=== PATIENT | female | born 1975 | race Caucasian/White ===

== ENCOUNTER 2016-08-18 09:30 | Emergency (ER) | payer OTHER ==
[~2016-08-18] VITALS: Wt 80.0 kg
[~2016-08-18 09:30] MED LIST: AMLO-147 PO; CEPH-443 PO; IBUP-1542 PO; INSU100C SC; LANT3I SC; METF500T4 PO; ORPH100T PO; PHEN-538 PO
--- NOTE | 2016-08-18 10:31 | ERD ---
ER Documentation Chief Complaint Date/Time DATE: 08/18/16 TIME: 10:30 Chief Complaint dysuria and hematuria for the past wk . nausea no vomiting no backpain HPI 41-year-old female with history of type 1 diabetes comes in with dysuria, on and off hematuria and vaginal discharge for the past week. Patient states that it started with vaginal itching and white discharge, and she also complains of painful urination and urgency. She has not had any fever, chills, nausea, vomiting, hematuria or flank pain. ROS All systems reviewed and are negative except as per history of present illness. Medications Home Meds Active Scripts Fluconazole* (Diflucan*) 150 Mg Tablet, 150 MG PO ONCE, #2 TAB Prov:TEET LU PA-C 08/18/16 Nitrofurantoin Monohyd Macrocr* (Macrobid*) 100 Mg Capsr, 100 MG PO BID for 7 Days, CAP Prov:TETE LU PA-C 08/18/16 Phenazopyridine Hcl* (Pyridium*) 200 Mg Tab, 200 MG PO TID Y for URINARY PAIN, # 6 TAB Prov:RYAN BROOKE PA-C 02/16/16 Cephalexin* (Keflex*) 500 Mg Capsule, 500 MG PO BID for 5 Days, CAP Prov:RYAN BROOKE PA-C 02/16/16 Orphenadrine Citrate (Norflex) 100 Mg Tablet.sa, 100 MG PO BID, #6 TAB.SA Prov:JEAN PAUL KYLE 12/14/15 Ibuprofen* (Motrin*) 600 Mg Tab, 600 MG PO Q8, #20 TAB Prov:JEAN PAUL KYLE 12/14/15 Cephalexin* (Keflex*) 500 Mg Capsule, 500 MG PO QID for 7 Days, CAP Prov:JEAN PAUL KYLE 12/14/15 Reported Medications Amlodipine Besylate* (Amlodipine Besylate*) Unknown Strength Tablet, MG PO DAILY , #30 TAB 12/14/15 Metformin* (Glucophage*) Unknown Strength Tab, MG PO WITH BREAKFAST DINNE, #60 TAB 12/14/15 Insulin Lispro (Humalog) 100 U/Ml Cartridge, 20 UNITS SC WITH BREAKFAST DINNE, EA 12/14/15 Insulin Glargine* (Lantus*) 100 Unit/Ml Soln, 15 UNIT SC BID, #1 VIAL 12/14/15 Allergies Allergies: Coded Allergies: No Known Allergy (Unverified , 12/14/15) PMhx/Soc History of Surgery: Yes (cholecystectomy) Anesthesia Reaction: No Hx Neurological Disorder: No Hx Respiratory Disorders: No Hx Cardiac Disorders: Yes (HTN) Hx Psychiatric Problems: No Hx Miscellaneous Medical Probl: Yes (DM) Hx Alcohol Use: No Hx Substance Use: No Hx Tobacco Use: No Physical Exam Vitals Vital Signs Date Time Temp Pulse Resp B/P Pulse Ox O2 Delivery O2 Flow Rate FiO2 08/18/16 09:32 97.8 85 21 139/74 98 Physical Exam General: Well-developed, well-nourished. The patient appears in no acute distress. HEENT: Head is normocephalic, atraumatic. No scleral icterus. . Neck: Supple. Nontender. Lungs: Clear to auscultation. Normal air movement. Heart: Regular rate and rhythm. S1 and S2 are normal. No murmurs, gallops, or rubs. Abdomen: Soft, nontender, nondistended. Bowel sounds are normoactive. : No CMT tenderness, no masses. There is white vaginal discharge in the cifuentes , yeastlike discharge as well. Extremities: No clubbing or cyanosis. Normal pulses. Moving extremities x 4. No weakness. Neurologic: Alert and oriented 3. No focal deficits. Skin: Normal turgor. No rash or lesions. Results 24 hrs Laboratory Tests Test 08/18/16 10:38 08/18/16 10:45 Bedside Urine Blood Negative Bedside Urine Glucose (UA) 0.50% Bedside Urine Ketones (LAB) Negative Bedside Urine Leukocyte Esterase (L Negative Bedside Urine Nitrite (LAB) Positive Bedside Urine Protein (LAB) Negative Bedside Urine pH (LAB) 6.0 Bedside Glucose 286mg/dL Procedures/MDM ED course: Urine dip in progress done. Urine was sent for gonorrhea and chlamydia. MDM: 41-year-old female comes in with vaginal discharge as well as painful urination and urgency on and off for the past week, she has evidence of a urinary tract infection with positive nitrates. Urine was sent for gonorrhea and chlamydia, will not treat for PID given that she does not have any pelvic pain. Yeast vaginitis was present on examination, will treat with Diflucan. Departure Diagnosis: Primary Impression: Yeast vaginitis Additional Impression: UTI (urinary tract infection) Condition: Good TETE LU PA-C Aug 18, 2016 10:31
[2016-08-18 10:37] LABS: URINE BLOOD (Dip) POC Negative (NEGATIVE)
[2016-08-18] MEDS ORDERED: NITR-58 PO (10:47)
[2016-08-18] MEDS ORDERED: FLUC150T17 PO (10:47)
== END 2016-08-18 11:00 | disposition home or self-care (01) ==
LOC: FTE 09:30
DX: B37.3 Candidiasis of vulva and vagina (principal); N39.0 Urinary tract infection, site not specified; E11.9 Type 2 diabetes mellitus without complications; I10 Essential (primary) hypertension; N89.8 Other specified noninflammatory disorders of vagina; Z79.4 Long term (current) use of insulin; Z79.84 Long term (current) use of oral hypoglycemic drugs
CPT/HCPCS: 81003; 82962; 87591; 99284

== ENCOUNTER 2016-12-27 14:24 | Emergency (ER) | payer OTHER ==
[~2016-12-27] VITALS: Ht 157.5 cm; Wt 87.5 kg
[~2016-12-27 14:24] MED LIST changes: +FLUC150T17 PO; +NITR-58 PO
[2016-12-27 14:39] VITALS: Ht 157.5 cm; Wt 87.5 kg
[2016-12-27] MEDS ORDERED: ONDANSETRON (ODT) 4 MG TAB ODT STA (15:05)
[2016-12-27 15:28] LABS: ADD SCAN DIFF NO
[2016-12-27 15:31] LABS: BASOPHILS % 0.2 % (0.0-2.0); EOSINOPHILS % 0.2 % (0.0-7.0); HEMOGLOBIN 11.3 g/dl (12.0-16.0); LYMPHOCYTES # 2.8 10^3/ul (0.8-2.9); LYMPHOCYTES % 21.8 % (15.0-51.0); MEAN CORPUSCULAR HEMOGLOBIN 26.6 pg (29.0-33.0); MEAN CORPUSCULAR HGB CONC 32.3 g/dl (32.0-37.0); MEAN CORPUSCULAR VOLUME 82.4 fl (82.0-101.0); MEAN PLATELET VOLUME 10.5 fl (7.4-10.4); MONOCYTE # 0.5 10^3/ul (0.3-0.9); MONOCYTES % 4.2 % (0.0-11.0); NEUTROPHIL # 9.2 10^3/ul (1.6-7.5); NEUTROPHILS % 73.2 % (39.0-77.0); PLATELET COUNT 317 10^3/UL (140-415); RED BLOOD COUNT 4.25 10^6/ul (4.20-5.40); RED CELL DISTRIBUTION WIDTH 14.3 % (11.5-14.5); WHITE BLOOD COUNT 12.6 10^3/ul (4.8-10.8)
[2016-12-27 15:49] LABS: ALBUMIN 4.2 g/dl (3.3-4.9); ALBUMIN/GLOBULIN RATIO 1.4; BILIRUBIN,INDIRECT 0.1 mg/dl (0-1.1); BILIRUBIN,TOTAL 0.1 mg/dl (0.2-1.3); CALCIUM 9.2 mg/dl (8.4-10.2); CREATININE 0.53 mg/dl (0.44-1.00); POTASSIUM 4.2 mmol/L (3.5-5.1); TOTAL PROTEIN 7.2 g/dl (6.1-8.1)
[2016-12-27 15:53] LABS: ADD UMIC YES; URINE BILIRUBIN (Dip) NEGATIVE (NEGATIVE); URINE BLOOD (Dip) NEGATIVE (NEGATIVE); URINE COLOR LT. YELLOW (YELLOW); URINE GLUCOSE (Dip) NEGATIVE (NEGATIVE); URINE KETONES (Dip) NEGATIVE (NEGATIVE); URINE LEUKOCYTE ESTERASE (Dip) 1+ (NEGATIVE); URINE NITRITE (Dip) NEGATIVE (NEGATIVE); URINE TOTAL PROTEIN (Dip) NEGATIVE (NEGATIVE); URINE UROBILINOGEN (Dip) 0.2 E.U./dL (0.1-1.0)
[2016-12-27 15:59] LABS: URINE RBCS NONE SEEN /HPF (0)
[2016-12-27] MEDS ORDERED: CEPH-443 PO (16:49)
[2016-12-27] MEDS ORDERED: ONDA8TAB14 PO (16:49)
--- NOTE | 2016-12-27 16:53 | ERD ---
ER Documentation Chief Complaint Date/Time DATE: 12/27/16 TIME: 16:49 Chief Complaint multi days with stomuch discomfort, n/v thsi am and possible hypoglycemia HPI This 41-year-old female presents with a few days of some nausea and intermittent vomiting. Patient has a history of diabetes and felt some dizziness this morning. Patient in the past has had hypoglycemic episodes and is aware of usual symptoms of dizziness felt a little bit different today. She denies any fevers, chest pain or shortness of breath or bowel bladder incontinence. ROS All systems reviewed and are negative except as per history of present illness. Medications Home Meds Active Scripts Ondansetron (Ondansetron Odt) 8 Mg Tab.rapdis, 8 MG PO Q6H Y for NAUSEA AND/OR VOMITING, #8 TAB Prov:TIA HERNANDES MD 12/27/16 Cephalexin* (Keflex*) 500 Mg Capsule, 500 MG PO QID for 5 Days, CAP Prov:TIA HERNANDES MD 12/27/16 Fluconazole* (Diflucan*) 150 Mg Tablet, 150 MG PO ONCE, #2 TAB Prov:TETE LU PA-C 08/18/16 Nitrofurantoin Monohyd Macrocr* (Macrobid*) 100 Mg Capsr, 100 MG PO BID for 7 Days, CAP Prov:TETE LU PA-C 08/18/16 Phenazopyridine Hcl* (Pyridium*) 200 Mg Tab, 200 MG PO TID Y for URINARY PAIN, # 6 TAB Prov:RYAN BROOKE PA-C 02/16/16 Cephalexin* (Keflex*) 500 Mg Capsule, 500 MG PO BID for 5 Days, CAP Prov:RYAN BROOKE PA-C 02/16/16 Orphenadrine Citrate (Norflex) 100 Mg Tablet.sa, 100 MG PO BID, #6 TAB.SA Prov:JEAN PAUL KYLE 12/14/15 Ibuprofen* (Motrin*) 600 Mg Tab, 600 MG PO Q8, #20 TAB Prov:JEAN PAUL KYLE 12/14/15 Cephalexin* (Keflex*) 500 Mg Capsule, 500 MG PO QID for 7 Days, CAP Prov:JEAN PAUL KYLE 12/14/15 Reported Medications Amlodipine Besylate* (Amlodipine Besylate*) Unknown Strength Tablet, MG PO DAILY , #30 TAB 12/14/15 Metformin* (Glucophage*) Unknown Strength Tab, MG PO WITH BREAKFAST DINNE, #60 TAB 12/14/15 Insulin Lispro (Humalog) 100 U/Ml Cartridge, 20 UNITS SC WITH BREAKFAST DINNE, EA 12/14/15 Insulin Glargine* (Lantus*) 100 Unit/Ml Soln, 15 UNIT SC BID, #1 VIAL 12/14/15 Allergies Allergies: Coded Allergies: No Known Allergy (Unverified , 12/27/16) PMhx/Soc History of Surgery: Yes (cholecystectomy) Anesthesia Reaction: No Hx Neurological Disorder: No Hx Respiratory Disorders: No Hx Cardiac Disorders: Yes (HTN) Hx Psychiatric Problems: No Hx Miscellaneous Medical Probl: Yes (DM) Hx Alcohol Use: No Hx Substance Use: No Hx Tobacco Use: No Smoking Status: Never smoker Physical Exam Vitals Vital Signs Date Time Temp Pulse Resp B/P Pulse Ox O2 Delivery O2 Flow Rate FiO2 12/27/16 14:39 98.6 97 18 142/83 98 Physical Exam Const: [] Alert, [id number]. Head: Atraumatic Eyes: Normal Conjunctiva ENT: Normal External Ears, Nose and Mouth. Neck: Full range of motion..~ No meningismus. Resp: Clear to auscultation bilaterally Cardio: Regular rate and rhythm, no murmurs Abd: Soft, non tender, non distended. Normal bowel sounds Skin: No petechiae or rashes Back: No midline or flank tenderness Ext: No cyanosis, or edema Neur: Awake and alert Psych: Normal Mood and Affect Result Diagram: 12/27/16 1520 12/27/16 1520 Results 24 hrs Laboratory Tests Test 12/27/16 15:20 12/27/16 15:30 White Blood Count 12.610^3/ul Red Blood Count 4.2510^6/ul Hemoglobin 11.3g/dl Hematocrit 35.0% Mean Corpuscular Volume 82.4fl Mean Corpuscular Hemoglobin 26.6pg Mean Corpuscular Hemoglobin Concent 32.3g/dl Red Cell Distribution Width 14.3% Platelet Count 07073^3/UL Mean Platelet Volume 10.5fl Neutrophils % 73.2% Lymphocytes % 21.8% Monocytes % 4.2% Eosinophils % 0.2% Basophils % 0.2% Nucleated Red Blood Cells % 0.0/100WBC Neutrophils # 9.210^3/ul Lymphocytes # 2.810^3/ul Monocytes # 0.510^3/ul Eosinophils # 0.010^3/ul Basophils # 0.010^3/ul Nucleated Red Blood Cells # 0.010^3/ul Sodium Level 140mmol/L Potassium Level 4.2mmol/L Chloride Level 106mmol/L Carbon Dioxide Level 26mmol/L Anion Gap 12 Blood Urea Nitrogen 9mg/dl Creatinine 0.53mg/dl Glucose Level 88mg/dl Calcium Level 9.2mg/dl Total Bilirubin 0.1mg/dl Direct Bilirubin 0.00mg/dl Indirect Bilirubin 0.1mg/dl Aspartate Amino Transf (AST/SGOT) 24IU/L Alanine Aminotransferase (ALT/SGPT) 37IU/L Alkaline Phosphatase 109IU/L Total Protein 7.2g/dl Albumin 4.2g/dl Globulin 3.00g/dl Albumin/Globulin Ratio 1.40 Lipase 37U/L Urine Color LT. YELLOW Urine Clarity CLEAR Urine pH 6.0 Urine Specific [place] <=1.005 Urine Ketones NEGATIVE Urine Nitrite NEGATIVE Urine Bilirubin NEGATIVE Urine Urobilinogen 0.2 E.U./dL Urine Leukocyte Esterase 1+ Urine Microscopic RBC NONE SEEN/HPF Urine Microscopic WBC 2-5/HPF Urine Epithelial Cells FEW Urine Hemoglobin NEGATIVE Urine Glucose NEGATIVE% Urine Total Protein NEGATIVE Current Medications Medications (Trade) Dose Ordered Sig/Dinesh Route PRN Reason Start Time Stop Time Status Last Admin Dose Admin Ondansetron HCl (Zofran Odt) 8 mg ONCE STAT ODT 12/27/16 15:05 12/27/16 15:06 DC 12/27/16 15:29 Cephalexin (Keflex) 500 mg ONCE ONCE PO 12/27/16 17:00 12/27/16 17:01 Procedures/MDM CBC shows white blood cell count 12.6. There is some slight anemia at 11. CMP is normal with a glucose of 88. Urine shows leukocytes and a few white blood cells, nitrites, glucose or blood. EKG: Rate/Rhythm: [Normal Sinus Rhythm] rate equals 87 QRS, ST, T-waves: [No changes consistent w/ acute ischemia] Impression: [No evidence of ischemia or arrhythmia]. Impression abnormal EKG Patient was given Keflex 500 mg by mouth. Patient presents with nonspecific dizziness. There are signs of UTI will be treated for this. She is currently amatory without signs or symptoms of serious illness. Patient is advised she may need adjustment of her insulin dose given her normal and history of dizziness and hypoglycemic episodes. Patient is advised to follow-up with primary doctor. In the meantime she will be advised to lower her insulin dose by 25% and observe for new or worsening symptoms and follow-up with primary doctor. The patient was stable with no new complaints during the ER course. Clinically, there is no current evidence to suggest meningitis, sepsis, acute abdomen, pneumonia, acute coronary syndrome, pulmonary embolism, or any other emergent condition appearing to require further evaluation or hospitalization. The patient should certainly return for any new or worsening symptoms per the aftercare instructions. They should otherwise follow-up with her primary care doctor for reevaluation this week. Departure Diagnosis: Primary Impression: Dizzy Additional Impression: UTI (urinary tract infection) Urinary tract infection type: acute cystitis Hematuria presence: without hematuria Qualified Code: N30.00 - Acute cystitis without hematuria Condition: Stable Patient Instructions: Understanding Urinary Tract Infections (UTIs), Dizziness , Unk Cause Additional Instructions: hay infeccion en orina. otro Examines normal hoy. Cheque otro vez con galciia doctor primario en el proximo barr or regresa para mas o nueva simptomas. TIA HERNANDES MD Dec 27, 2016 16:53
[2016-12-27] MEDS ORDERED: CEPHALEXIN 500 MG CAP PO ONE (17:00)
[2016-12-27 17:07] VITALS: BP 132/68; PULSE 77; RESP 18
== END 2016-12-27 17:07 | disposition home or self-care (01) ==
LOC: FTE 14:24
DX: R42 Dizziness and giddiness (principal); N30.00 Acute cystitis without hematuria; I10 Essential (primary) hypertension; E11.9 Type 2 diabetes mellitus without complications; Z79.4 Long term (current) use of insulin; Z79.84 Long term (current) use of oral hypoglycemic drugs
CPT/HCPCS: 80053; 81001; 83690; 85025; Z7610; 36415; 93005

== ENCOUNTER 2017-04-16 06:05 | Emergency (ER) | payer OTHER ==
[~2017-04-16] VITALS: Ht 170.2 cm; Wt 92.5 kg
[~2017-04-16 06:05] MED LIST changes: +ONDA8TAB14 PO
[2017-04-16 06:10] VITALS: Ht 170.2 cm; Wt 92.5 kg
[2017-04-16] MEDS ORDERED: ACETAMINOPHEN 500 MG TAB PO STA (06:22)
[2017-04-16 06:39] LABS: URINE BLOOD (Dip) POC Trace-lysed (NEGATIVE)
[2017-04-16] MEDS ORDERED: ONDA4TAB8 PO (07:06)
[2017-04-16] MEDS ORDERED: CEPH-443 PO (07:06)
[2017-04-16] MEDS ORDERED: ACET500C5 PO (07:07)
--- NOTE | 2017-04-16 07:13 | ERD ---
ER Documentation Chief Complaint Date/Time DATE: 04/16/17 TIME: 07:09 Chief Complaint Difficulty urinating x3 days, no hematuria. Chills the previous days HPI This is a 42-year-old female who presents the emergency department today complaining of pain and burning with urination for the past 3 days. Patient states that she also has a headache. Denies any fevers, blurred vision. ROS All systems reviewed and are negative except as per history of present illness. Medications Home Meds Active Scripts Acetaminophen* (Tylophen*) 500 Mg Capsule, 1 CAP PO Q6H Y for PAIN AND OR ELEVATED TEMP, #30 CAP Prov:ABRAHAM ORTEGA PA-C 04/16/17 Ondansetron Hcl* (Zofran*) 4 Mg Tablet, 4 MG PO Q6H for NAUSEA AND/OR VOMITING, #30 TAB Prov:ABRAHAM ORTEGA PA-C 04/16/17 Cephalexin* (Keflex*) 500 Mg Capsule, 500 MG PO QID for 7 Days, CAP Prov:ABRAHAM ORTEGA PA-C 04/16/17 Ondansetron (Ondansetron Odt) 8 Mg Tab.rapdis, 8 MG PO Q6H Y for NAUSEA AND/OR VOMITING, #8 TAB Prov:TIA HERNANDES MD 12/27/16 Cephalexin* (Keflex*) 500 Mg Capsule, 500 MG PO QID for 5 Days, CAP Prov:TIA HERNANDES MD 12/27/16 Fluconazole* (Diflucan*) 150 Mg Tablet, 150 MG PO ONCE, #2 TAB Prov:TETE LU PA-C 08/18/16 Nitrofurantoin Monohyd Macrocr* (Macrobid*) 100 Mg Capsr, 100 MG PO BID for 7 Days, CAP Prov:TETE LU PA-C 08/18/16 Phenazopyridine Hcl* (Pyridium*) 200 Mg Tab, 200 MG PO TID Y for URINARY PAIN, # 6 TAB Prov:RYAN BROOKE PA-C 02/16/16 Cephalexin* (Keflex*) 500 Mg Capsule, 500 MG PO BID for 5 Days, CAP Prov:RYAN BROOKE PA-C 02/16/16 Orphenadrine Citrate (Norflex) 100 Mg Tablet.sa, 100 MG PO BID, #6 TAB.SA Prov:LATOYA KYLEBEL 12/14/15 Ibuprofen* (Motrin*) 600 Mg Tab, 600 MG PO Q8, #20 TAB Prov:LATOYA KYLEBEL 12/14/15 Cephalexin* (Keflex*) 500 Mg Capsule, 500 MG PO QID for 7 Days, CAP Prov:LATOYA KYLEBEL 12/14/15 Reported Medications Amlodipine Besylate* (Amlodipine Besylate*) Unknown Strength Tablet, MG PO DAILY , #30 TAB 12/14/15 Metformin* (Glucophage*) Unknown Strength Tab, MG PO WITH BREAKFAST DINNE, #60 TAB 12/14/15 Insulin Lispro (Humalog) 100 U/Ml Cartridge, 20 UNITS SC WITH BREAKFAST DINNE, EA 12/14/15 Insulin Glargine* (Lantus*) 100 Unit/Ml Soln, 15 UNIT SC BID, #1 VIAL 12/14/15 Allergies Allergies: Coded Allergies: No Known Allergy (Unverified , 12/27/16) PMhx/Soc History of Surgery: Yes (cholecystectomy) Anesthesia Reaction: No Hx Neurological Disorder: No Hx Respiratory Disorders: No Hx Cardiac Disorders: Yes (HTN) Hx Psychiatric Problems: No Hx Miscellaneous Medical Probl: Yes (DM) Hx Alcohol Use: No Hx Substance Use: No Hx Tobacco Use: No Physical Exam Vitals Vital Signs Date Time Temp Pulse Resp B/P Pulse Ox O2 Delivery O2 Flow Rate FiO2 04/16/17 06:10 97.5 87 20 149/73 98 Physical Exam Const: pleasant, NAD Head: Atraumatic Eyes: Normal Conjunctiva ENT: Normal External Ears, Nose and Mouth. Neck: Full range of motion..~ No meningismus. Resp: Clear to auscultation bilaterally Cardio: Regular rate and rhythm, no murmurs Abd: Soft, suprapubic tenderness non distended. Normal bowel sounds. No tenderness to McBurney's Skin: No petechiae or rashes Back: No midline or flank tenderness no CVA tenderness Ext: No cyanosis, or edema Neur: Awake and alert Psych: Normal Mood and Affect Results 24 hrs Laboratory Tests Test 04/16/17 06:46 Bedside Urine pH (LAB) 5.5 Bedside Urine Protein (LAB) Negative Bedside Urine Glucose (UA) Negative Bedside Urine Ketones (LAB) Negative Bedside Urine Blood Trace-lysed Bedside Urine Nitrite (LAB) Negative Bedside Urine Leukocyte Esterase (L 2+ Current Medications Medications (Trade) Dose Ordered Sig/Dinesh Route PRN Reason Start Time Stop Time Status Last Admin Dose Admin Acetaminophen (Tylenol Tab) 500 mg ONCE STAT PO 04/16/17 06:22 04/16/17 06:23 DC 04/16/17 06:45 Procedures/MDM This is a 42-year-old female presents the emergency department today complaining of burning and pain with urination as well as a headache for the past 3 days. I did obtain a UA UA shows 2+ leukocyte esterase. Negative Nitrites Patient symptoms at this time is consistent with urinary tract infection. She is afebrile and otherwise well-appearing. She has no CVA tenderness and I have lower suspicion for pyelonephritis or nephrolithiasis. Patient has no tenderness at McBurney's and no other abdominal pain and I have low suspicion for acute surgical abdomen, ectopic , tubo-ovarian abscess or ovarian torsion. Patient was given Tylenol here in the emergency department. Prior to discharge patient told me that she did have some nausea and was therefore given a prescription for Zofran, Tylenol and Keflex to treat her urinary tract infection. At this time the patient is stable for discharge and outpatient management. Patient should follow up with their PCP in the next 1-2 days. They may return to the emergency department sooner for any persistent or worsening of symptoms. Patient understood and agreed with the plan. Departure Diagnosis: Primary Impression: UTI (urinary tract infection) Urinary tract infection type: site unspecified Hematuria presence: without hematuria Qualified Code: N39.0 - Urinary tract infection without hematuria, site unspecified Condition: Fair Patient Instructions: Understanding Urinary Tract Infections (UTIs) Referrals: your PCP Additional Instructions: Llame al doctor MAANA y ami yelitza MICHAEL PARA DENTRO DE 1-2 PEREZ.Dgale a la secretaria que nosotros le instruimos hacer esta michael.Avise o llame si galicia condicin se empeora antes de la michael. Regresa aqui si peor o no mejor. Take antibiotics as prescribed. Take Zofran for nausea or vomiting. Take tylenol for pain ABRAHAM ORTEGA PA-C Apr 16, 2017 07:13
== END 2017-04-16 08:00 | disposition home or self-care (01) ==
LOC: FTE 06:05
DX: N39.0 Urinary tract infection, site not specified (principal); I10 Essential (primary) hypertension; E11.9 Type 2 diabetes mellitus without complications; Z79.4 Long term (current) use of insulin; Z79.84 Long term (current) use of oral hypoglycemic drugs
CPT/HCPCS: 81003; Z7502; Z7610; 99284

== ENCOUNTER 2017-07-06 07:59 | Emergency (ER) | payer OTHER ==
[~2017-07-06] VITALS: Ht 160 cm; Wt 92.2 kg
[~2017-07-06 07:59] MED LIST changes: +ACET500C5 PO; +ONDA4TAB8 PO
[2017-07-06 08:02] VITALS: Ht 160 cm; Wt 92.2 kg
[2017-07-06 09:07] LABS: URINE BLOOD (Dip) POC Trace-intact (NEGATIVE)
[2017-07-06] MEDS ORDERED: NITR-58 PO (09:22)
[2017-07-06] MEDS ORDERED: PHEN-537 PO (09:22)
--- NOTE | 2017-07-06 10:05 | ERD ---
ER Documentation Chief Complaint Chief Complaint dysuria x 1 week, left flank pain x 4 days HPI 42-year-old female is complaining of lower pelvic pain and dysuria 1 week. Patient stated that his urine has a foul odor. She has increased urinary frequency with small amounts each time. Patient also reports left-sided lower back pain. Patient has history of diabetes and past UTI. States that this feels the same as previous UTI. Last episode was about 3 month ago. Denies fever or chills. Denies nausea, vomiting, or diarrhea. ROS All systems reviewed and are negative except as per history of present illness. Medications Home Meds Active Scripts Phenazopyridine Hcl* (Pyridium*) 100 Mg Tab, 100 MG PO TID Y for URINARY PAIN, # 6 TAB Prov:MARGARETTE ANAYA NP 07/06/17 Nitrofurantoin Monohyd Macrocr* (Macrobid*) 100 Mg Capsr, 100 MG PO BID for 7 Days, CAP Prov:MARGARETTE ANAYA NP 07/06/17 Acetaminophen* (Tylophen*) 500 Mg Capsule, 1 CAP PO Q6H Y for PAIN AND OR ELEVATED TEMP, #30 CAP Prov:ABRAHAM ORTEGA PA-C 04/16/17 Ondansetron Hcl* (Zofran*) 4 Mg Tablet, 4 MG PO Q6H for NAUSEA AND/OR VOMITING, #30 TAB Prov:ABRAHAM ORTEGA PA-C 04/16/17 Cephalexin* (Keflex*) 500 Mg Capsule, 500 MG PO QID for 7 Days, CAP Prov:ABRAHAM ORTEGA PA-C 04/16/17 Ondansetron (Ondansetron Odt) 8 Mg Tab.rapdis, 8 MG PO Q6H Y for NAUSEA AND/OR VOMITING, #8 TAB Prov:TIA HERNANDES MD 12/27/16 Cephalexin* (Keflex*) 500 Mg Capsule, 500 MG PO QID for 5 Days, CAP Prov:TIA HERNANDES MD 12/27/16 Fluconazole* (Diflucan*) 150 Mg Tablet, 150 MG PO ONCE, #2 TAB Prov:TETE LU PA-C 08/18/16 Nitrofurantoin Monohyd Macrocr* (Macrobid*) 100 Mg Capsr, 100 MG PO BID for 7 Days, CAP Prov:TETE LU PA-C 08/18/16 Phenazopyridine Hcl* (Pyridium*) 200 Mg Tab, 200 MG PO TID Y for URINARY PAIN, # 6 TAB Prov:RYAN BROOKE PA-C 02/16/16 Cephalexin* (Keflex*) 500 Mg Capsule, 500 MG PO BID for 5 Days, CAP Prov:RYAN BROOKE PA-C 02/16/16 Orphenadrine Citrate (Norflex) 100 Mg Tablet.sa, 100 MG PO BID, #6 TAB.SA Prov:JEAN PAUL KYLE 12/14/15 Ibuprofen* (Motrin*) 600 Mg Tab, 600 MG PO Q8, #20 TAB Prov:JEAN PAUL KYLE 12/14/15 Cephalexin* (Keflex*) 500 Mg Capsule, 500 MG PO QID for 7 Days, CAP Prov:JEAN PAUL KYLE 12/14/15 Reported Medications Amlodipine Besylate* (Amlodipine Besylate*) Unknown Strength Tablet, MG PO DAILY , #30 TAB 12/14/15 Metformin* (Glucophage*) Unknown Strength Tab, MG PO WITH BREAKFAST DINNE, #60 TAB 12/14/15 Insulin Lispro (Humalog) 100 U/Ml Cartridge, 20 UNITS SC WITH BREAKFAST DINNE, EA 12/14/15 Insulin Glargine* (Lantus*) 100 Unit/Ml Soln, 15 UNIT SC BID, #1 VIAL 12/14/15 Allergies Allergies: Coded Allergies: No Known Allergy (Unverified , 07/06/17) PMhx/Soc History of Surgery: Yes (cholecystectomy) Anesthesia Reaction: No Hx Neurological Disorder: No Hx Respiratory Disorders: No Hx Cardiac Disorders: Yes (HTN) Hx Psychiatric Problems: No Hx Miscellaneous Medical Probl: Yes (DM) Hx Alcohol Use: No Hx Substance Use: No Hx Tobacco Use: No Smoking Status: Never smoker Physical Exam Vitals Vital Signs Date Time Temp Pulse Resp B/P Pulse Ox O2 Delivery O2 Flow Rate FiO2 07/06/17 08:02 98.3 79 18 147/79 98 Physical Exam General: Well-developed, well-nourished, conscious and coherent, in no distress Skin: Warm and dry without rash, good texture and turgor Head: Normocephalic without evidence of trauma Eyes: Sclera and conjunctivae normal; pupils equal, round, and reactive to light; extraocular movements are intact Chest: Normal AP diameter. Good expansion without retractions. Nontender. Lungs are clear to auscultate bilaterally with good tidal volume Heart: Regular rate and rhythm. No murmur, rub, or gallops heard Abdomen: Soft and nontender without masses, guarding, or rebound. Bowel sounds are active. No hepatosplenomegaly Back: Without spinal or CVA tenderness Pelvis: Suprapubic tenderness Extremities: Full range of motion. Good strength bilaterally. No clubbing, cyanosis, or edema. Peripheral pulses are intact. Sensation intact Neuro: Alert and oriented 4, GCS 15. Cranial nerves grossly intact. Motor and sensory exams nonfocal. Moves all extremities. Speech clear. Gait normal Results 24 hrs Laboratory Tests Test 07/06/17 09:07 Bedside Urine pH (LAB) 6.0 Bedside Urine Protein (LAB) Negative Bedside Urine Glucose (UA) 0.1% Bedside Urine Ketones (LAB) Negative Bedside Urine Blood Trace-intact Bedside Urine Nitrite (LAB) Negative Bedside Urine Leukocyte Esterase (L 1+ Procedures/MDM Well-appearing 42-year-old female with history of diabetes and urinary frequent UTIs present ED with UTI symptoms. Urine dip showed 1+ leukocyte, negative nitrite, trace blood, and positive glucose. All consistent with recurrent UTI. Urine is sent out for culture and sensitivity. Patient does not have any CVA tenderness or fever. I doubt pyelonephritis. Patient appears well, stable for discharge and outpatient management. Medical decision making shared with patient and family. Education provided to patient and family. Patient and family expressed understanding of the plan. Medications on discharge: Macrobid, Pyridium Follow-up: Primary care provider in 2-3 days or return to ED if worse. Disclaimer: Inadvertent spelling and grammatical errors are likely due to EHR/ dictation software use and do not reflect on the overall quality of patient care. Also, please note that the electronic time recorded on this note does not necessarily reflect the actual time of the patient encounter. Departure Diagnosis: Primary Impression: UTI (urinary tract infection) Urinary tract infection type: acute cystitis Hematuria presence: with hematuria Qualified Code: N30.01 - Acute cystitis with hematuria Condition: Stable Patient Instructions: Understanding Urinary Tract Infections (UTIs) Referrals: DOCTOR,NOT ON STAFF [facility] ([facility]) Usted se franco hecho un examen mdico de control que le indica que no est en yelitza condicin que requiera tratamiento urgente en el Departamento de Emergencia. Un estudio ms profundo y el tratamiento de galicia condicin pueden esperar sin ningn riesgo hasta que usted sea atendida/o en el consultorio de galicia mdico o yelitza cl nikki. Es responsabilidad suya arreglar yelitza michael para el seguimiento del jose. MANEJO DE CONDICIONES NO URGENTES EN EL FUTURO 1) Si usted tiene un mdico de atencin primaria: Usted debera llamar a galicia mdico de atencin primaria antes de venir al departamento de emergencia. Despus de las horas de consultorio, galicia doctor o galicia asociado/a est disponible por telfono. El mdico o enfermero de maris en el servicio telefnico puede asesorarle por jame medio para atender el problema, o jose contrario se puede programar yelitza michael. 2) Si usted no tiene un mdico de atencin primaria: Llame al mdico o clnica de referencia que aparece abajo corey las horas de consultorio para hacer yelitza michael para que le vean. CLINICAS: [facility] [phone] [facility] [phone] [facility] [facility] [phone] [facility]. [facility] [phone] [facility]. [place] [phone] [facility]. [phone] Additional Instructions: Llame al doctor MAANA y ami yelitza MICHAEL PARA DENTRO DE 2-3 PEREZ.Dgale a la secretaria que nosotros le instruimos hacer esta michael.Avise o llame si galicia condicin se empeora antes de la michael. Regresa aqui si peor o no mejor. MARGARETTE ANAYA. TRACEY Jul 06, 2017 10:05
== END 2017-07-06 09:52 | disposition home or self-care (01) ==
LOC: FTE 07:59
DX: N30.01 Acute cystitis with hematuria (principal); I10 Essential (primary) hypertension; E11.9 Type 2 diabetes mellitus without complications; Z79.84 Long term (current) use of oral hypoglycemic drugs; Z79.4 Long term (current) use of insulin
CPT/HCPCS: 81003; 87086; Z7502; 99283

== ENCOUNTER 2017-12-16 07:24 | Emergency (ER) | END 2017-12-16 09:16 | disposition home or self-care (01) ==

== ENCOUNTER 2018-02-21 11:22 | Emergency (ER) | END 2018-02-21 13:49 | disposition home or self-care (01) ==

== ENCOUNTER 2018-10-21 09:58 | Emergency (ER) | payer OTHER ==
[~2018-10-21] VITALS: Wt 90.6 kg
[~2018-10-21 09:58] MED LIST changes: +ACET325T33 PO; +FAMO-96 PO; +FLUC150T PO; -FLUC150T17 PO; +METF-849 PO; -METF500T4 PO; +PHEN-537 PO
[2018-10-21 10:13] VITALS: BP 119/75; PULSE 95; RESP 18
[2018-10-21] MEDS ORDERED: PROM6.2515 PO (10:31)
[2018-10-21] MEDS ORDERED: MED4DP PO (10:31)
[2018-10-21] MEDS ORDERED: BENZ-6 PO (10:31)
--- NOTE | 2018-10-21 10:35 | ERD ---
ER Documentation Chief Complaint Chief Complaint cough and congestion for the past week. getting worser with back pain HPI 43-year-old female presenting with cough and congestion for the last week. Patient has a dry cough. She has no fevers. Has not taken medications for her symptoms. Medical history is diabetes. NKDA. Surgical history cholecystectomy. Social history denies ROS All systems reviewed and are negative except as per history of present illness. Medications Home Meds Active Scripts Benzonatate* (Tessalon Perle*) 100 Mg Capsule, 100 MG PO Q8H PRN for COUGH, #30 CAP Prov:ADDISON BERGERC 10/21/18 Promethazine Hcl* (Promethazine Hcl* Syrup) 6.25 Mg/5 Ml Syrup, 6.25 MG PO Q6H PRN for COUGH, #100 ML Prov:ADDISON BERGERC 10/21/18 Methylprednisolone* (Medrol* DOSE PACK) 4 Mg/Dose-Pack Tab.ds.pk, 4 MG PO . DIRECTED, #1 PACKET Prov:ADDISON BERGER PA-C 10/21/18 Cephalexin* (Keflex*) 500 Mg Capsule, 500 MG PO BID for 7 Days, CAP Prov:YVROSE MORALES 02/21/18 Famotidine* (Pepcid*) 20 Mg Tablet, 20 MG PO BID for 4 Days, #30 TAB Prov:ADDISON BERGER PA-C 12/16/17 Acetaminophen* (Tylenol*) 325 Mg Tablet, 2 TAB PO Q6 PRN for PAIN AND OR ELEVATED TEMP, #20 TAB Prov:ADDISON BERGERC 12/16/17 Nitrofurantoin Monohyd Macrocr* (Macrobid*) 100 Mg Capsr, 100 MG PO BID for 14 Days, CAP Prov:ADDISON BERGER-C 12/16/17 Phenazopyridine Hcl* (Pyridium*) 100 Mg Tab, 100 MG PO TID PRN for URINARY PAIN, #6 TAB Prov:MARGARETTE ANAYA NP 07/06/17 Nitrofurantoin Monohyd Macrocr* (Macrobid*) 100 Mg Capsr, 100 MG PO BID for 7 Days, CAP Prov:MARGARETTE ANAYA NP 07/06/17 Acetaminophen* (Tylophen*) 500 Mg Capsule, 1 CAP PO Q6H PRN for PAIN AND OR ELEVATED TEMP, #30 CAP Prov:ABRAHAM ORTEGA PA-C 04/16/17 Ondansetron Hcl* (Zofran*) 4 Mg Tablet, 4 MG PO Q6H for NAUSEA AND/OR VOMITING, #30 TAB Prov:ABRAHAM ORTEGA PA-C 04/16/17 Cephalexin* (Keflex*) 500 Mg Capsule, 500 MG PO QID for 7 Days, CAP Prov:ABRAHAM ORTEGA PA-C 04/16/17 Ondansetron (Ondansetron Odt) 8 Mg Tab.rapdis, 8 MG PO Q6H PRN for NAUSEA AND/OR VOMITING, #8 TAB Prov:TIA HERNANDES MD 12/27/16 Cephalexin* (Keflex*) 500 Mg Capsule, 500 MG PO QID for 5 Days, CAP Prov:TIA HERNANDES MD 12/27/16 Fluconazole* (Diflucan*) 150 Mg Tablet, 150 MG PO ONCE, #2 TAB Prov:TETE LU PA-C 08/18/16 Nitrofurantoin Monohyd Macrocr* (Macrobid*) 100 Mg Capsr, 100 MG PO BID for 7 Days, CAP Prov:TETE LU PA-C 08/18/16 Phenazopyridine Hcl* (Pyridium*) 200 Mg Tab, 200 MG PO TID PRN for URINARY PAIN, #6 TAB Prov:RYAN BROOKE PA-C 02/16/16 Cephalexin* (Keflex*) 500 Mg Capsule, 500 MG PO BID for 5 Days, CAP Prov:RYAN BROOKE PA-C 02/16/16 Orphenadrine Citrate (Norflex) 100 Mg Tablet.sa, 100 MG PO BID, #6 TAB.SA Prov:JEAN PAUL KYLE 12/14/15 Ibuprofen* (Motrin*) 600 Mg Tab, 600 MG PO Q8, #20 TAB Prov:JEAN PAUL KYLE 12/14/15 Cephalexin* (Keflex*) 500 Mg Capsule, 500 MG PO QID for 7 Days, CAP Prov:JEAN PAUL KYLE 12/14/15 Reported Medications Amlodipine Besylate* (Amlodipine Besylate*) Unknown Strength Tablet, MG PO DAILY, #30 TAB 12/14/15 Metformin* (Glucophage*) Unknown Strength Tab, MG PO WITH BREAKFAST DINNE, #60 TAB 12/14/15 Insulin Lispro (Humalog) 100 U/Ml Cartridge, 20 UNITS SC WITH BREAKFAST DINNE, EA 12/14/15 Insulin Glargine* (Lantus*) 100 Unit/Ml Soln, 15 UNIT SC BID, #1 VIAL 12/14/15 Allergies Allergies: Coded Allergies: No Known Allergy (Unverified , 12/16/17) PMhx/Soc History of Surgery: Yes (cholecystectomy 3 yrs ago) Anesthesia Reaction: No Hx Neurological Disorder: No Hx Respiratory Disorders: No Hx Cardiac Disorders: Yes (HTN) Hx Psychiatric Problems: No Hx Miscellaneous Medical Probl: Yes (DM) Hx Alcohol Use: No Hx Substance Use: No Hx Tobacco Use: No Smoking Status: Never smoker FmHx Family History: No diabetes, No coronary disease, No other Physical Exam Vitals Vital Signs Date Temp Pulse Resp B/P (MAP) Pulse Ox O2 O2 Flow FiO2 Time Delivery Rate 10/21/18 98.4 95 18 119/75 97 10:13 (90) Physical Exam GENERAL: The patient is well-appearing, well-nourished, in no acute distress HEENT: Atraumatic. Conjunctivae are pink. Pupils equal, round, and reactive to light. There is no scleral icterus. Tympanic membranes clear bilaterally. Oropharynx clear. NECK: C-spine is soft and supple. There is no meningismus. There is no cervical lymphadenopathy. CHEST: Clear to auscultation bilaterally. There are no rales, wheezes or rhonchi. HEART: Regular rate and rhythm. No murmurs, clicks, rubs or gallops. Procedures/MDM DM: 43-year-old female presents with cough. Patient's chest sounds are within normal limits. I have low suspicion for pneumonia. I have low suspicion for respiratory distress or hypoxia. Patient is discharged with strict ER precautions and told to follow-up with primary care within 1-2 days for close evaluation. All questions answered at discharge Departure Diagnosis: Primary Impression: Cough Condition: Stable Patient Instructions: Cough, Chronic, Uncertain Cause (Child) Referrals: COMMUNITY CLINICS YOU HAVE RECEIVED A MEDICAL SCREENING EXAM AND THE RESULTS INDICATE THAT YOU DO NOT HAVE A CONDITION THAT REQUIRES URGENT TREATMENT IN THE EMERGENCY DEPARTMENT. FURTHER EVALUATION AND TREATMENT OF YOUR CONDITION CAN WAIT UNTIL YOU ARE SEEN IN YOUR DOCTORS OFFICE WITHIN THE NEXT 1-2 DAYS. IT IS YOUR RESPONSIBILITY TO MAKE AN APPOINTMENT FOR FOLOW-UP CARE. IF YOU HAVE A PRIMARY DOCTOR --you should call your primary doctor and schedule an appointment IF YOU DO NOT HAVE A PRIMARY DOCTOR YOU CAN CALL OUR PHYSICIAN REFERRAL HOTLINE AT IF YOU CAN NOT AFFORD TO SEE A PHYSICIAN YOU CAN CHOSE FROM THE FOLLOWING [facility] [phone] [facility]. [facility] [address] [facility] [place] [address] [facility] [address] [facility]. [facility] [address] [facility]. [facility]. [address] Additional Instructions: FOLLOW UP WITH YOUR PRIMARY CARE PHYSICIAN TOMORROW.Return to this facility if you are not improving as expected. ADDISON BERGER PA-C Oct 21, 2018 10:35
== END 2018-10-21 10:51 | disposition home or self-care (01) ==
LOC: FTE 09:58
DX: R05 Cough (principal); I10 Essential (primary) hypertension; E11.9 Type 2 diabetes mellitus without complications; Z79.4 Long term (current) use of insulin
CPT/HCPCS: 99283

== ENCOUNTER 2018-12-12 18:01 | Emergency (ER) | payer OTHER ==
[~2018-12-12] VITALS: Wt 76.0 kg
[~2018-12-12 18:01] MED LIST changes: +BENZ-6 PO; +MED4DP PO; +PROM6.2515 PO
[2018-12-12] MEDS ORDERED: IBUPROFEN 600 MG TAB PO ONE (19:00)
--- NOTE | 2018-12-12 19:44 | ERD ---
ER Documentation Chief Complaint Chief Complaint VAGINAL BLEEDING X 2 WEEKS HPI 43-year-old female with past medical history of dysfunctional uterine bleeding presenting to the emergency department with complaints of intermittent vaginal bleeding for the past 2 weeks. Associated symptoms include suprapubic pain bilaterally which is rated 5/10 in severity and intermittent. She states she is been using 1 pad per hour today. She denies any abdominal pain, nausea, vomiting, diarrhea, fevers, chills, or other symptoms at this time. ROS All systems reviewed and are negative except as per history of present illness. Medications Home Meds Active Scripts Naproxen* (Naprosyn*) 500 Mg Tablet, 500 MG PO BID PRN for PAIN AND/OR INFLAMMATION, #30 TAB Prov:EZEQUIEL ISSA PA-C 12/12/18 Benzonatate* (Tessalon Perle*) 100 Mg Capsule, 100 MG PO Q8H PRN for COUGH, #30 CAP Prov:ADDISON BERGER PA-C 10/21/18 Promethazine Hcl* (Promethazine Hcl* Syrup) 6.25 Mg/5 Ml Syrup, 6.25 MG PO Q6H PRN for COUGH, #100 ML Prov:ADDISON BERGER PA-C 10/21/18 Methylprednisolone* (Medrol* DOSE PACK) 4 Mg/Dose-Pack Tab.ds.pk, 4 MG PO . DIRECTED, #1 PACKET Prov:ADDISON BERGER PA-C 10/21/18 Cephalexin* (Keflex*) 500 Mg Capsule, 500 MG PO BID for 7 Days, CAP Prov:YVROSE MORALES 02/21/18 Famotidine* (Pepcid*) 20 Mg Tablet, 20 MG PO BID for 4 Days, #30 TAB Prov:ADDISON BERGER PA-C 12/16/17 Acetaminophen* (Tylenol*) 325 Mg Tablet, 2 TAB PO Q6 PRN for PAIN AND OR ELEVATED TEMP, #20 TAB Prov:ADDISON BERGER PA-C 12/16/17 Nitrofurantoin Monohyd Macrocr* (Macrobid*) 100 Mg Capsr, 100 MG PO BID for 14 Days, CAP Prov:ADDISON BERGER PA-C 12/16/17 Phenazopyridine Hcl* (Pyridium*) 100 Mg Tab, 100 MG PO TID PRN for URINARY PAIN, #6 TAB Prov:JACLYNMARGARETTE X. PRINTING AGENT 07/06/17 Nitrofurantoin Monohyd Macrocr* (Macrobid*) 100 Mg Capsr, 100 MG PO BID for 7 Days, CAP Prov:JACLYNMARGARETTE X. PRINTING AGENT 07/06/17 Acetaminophen* (Tylophen*) 500 Mg Capsule, 1 CAP PO Q6H PRN for PAIN AND OR ELEVATED TEMP, #30 CAP Prov:ABRAHAM ORTEGA PA-C 04/16/17 Ondansetron Hcl* (Zofran*) 4 Mg Tablet, 4 MG PO Q6H for NAUSEA AND/OR VOMITING, #30 TAB Prov:ABRAHAM ORTEGA PA-C 04/16/17 Cephalexin* (Keflex*) 500 Mg Capsule, 500 MG PO QID for 7 Days, CAP Prov:ABRAHAM ORTEGA PA-C 04/16/17 Ondansetron (Ondansetron Odt) 8 Mg Tab.rapdis, 8 MG PO Q6H PRN for NAUSEA AND/OR VOMITING, #8 TAB Prov:TIA HERNANDES MD 12/27/16 Cephalexin* (Keflex*) 500 Mg Capsule, 500 MG PO QID for 5 Days, CAP Prov:TIA HERNANDES MD 12/27/16 Fluconazole* (Diflucan*) 150 Mg Tablet, 150 MG PO ONCE, #2 TAB Prov:TETE LU PA-C 08/18/16 Nitrofurantoin Monohyd Macrocr* (Macrobid*) 100 Mg Capsr, 100 MG PO BID for 7 Days, CAP Prov:TETE LU PA-C 08/18/16 Phenazopyridine Hcl* (Pyridium*) 200 Mg Tab, 200 MG PO TID PRN for URINARY PAIN, #6 TAB Prov:RYAN BROOKE PA-C 02/16/16 Cephalexin* (Keflex*) 500 Mg Capsule, 500 MG PO BID for 5 Days, CAP Prov:RYAN BROOKE PA-C 02/16/16 Orphenadrine Citrate (Norflex) 100 Mg Tablet.sa, 100 MG PO BID, #6 TAB.SA Prov:JEAN PAUL KYLE 12/14/15 Ibuprofen* (Motrin*) 600 Mg Tab, 600 MG PO Q8, #20 TAB Prov:LATOYA KYLEBEL 12/14/15 Cephalexin* (Keflex*) 500 Mg Capsule, 500 MG PO QID for 7 Days, CAP Prov:LATOYA KYLEBEL 12/14/15 Reported Medications Amlodipine Besylate* (Amlodipine Besylate*) Unknown Strength Tablet, MG PO DAILY, #30 TAB 12/14/15 Metformin* (Glucophage*) Unknown Strength Tab, MG PO WITH BREAKFAST DINNE, #60 TAB 12/14/15 Insulin Lispro (Humalog) 100 U/Ml Cartridge, 20 UNITS SC WITH BREAKFAST DINNE, EA 12/14/15 Insulin Glargine* (Lantus*) 100 Unit/Ml Soln, 15 UNIT SC BID, #1 VIAL 12/14/15 Allergies Allergies: Coded Allergies: No Known Allergy (Unverified , 12/16/17) PMhx/Soc History of Surgery: Yes (cholecystectomy 3 yrs ago) Anesthesia Reaction: No Hx Neurological Disorder: No Hx Respiratory Disorders: No Hx Cardiac Disorders: Yes (HTN) Hx Psychiatric Problems: No Hx Miscellaneous Medical Probl: No Hx Alcohol Use: No Hx Substance Use: No Hx Tobacco Use: No Smoking Status: Never smoker FmHx Family History: No diabetes Physical Exam Vitals Vital Signs Date Temp Pulse Resp B/P (MAP) Pulse Ox O2 O2 Flow FiO2 Time Delivery Rate 12/12/18 98.8 137 16 137/64 97 Room Air 20:12 (88) 12/12/18 98.3 92 18 168/86 99 18:03 (113) Physical Exam Const: No acute distress Head: Atraumatic Eyes: Normal Conjunctiva ENT: Normal External Ears, Nose and Mouth. Neck: Full range of motion. No meningismus. Resp: Clear to auscultation bilaterally Cardio: Regular rate and rhythm, no murmurs Abd: Soft, non tender, non distended. Normal bowel sounds. No rebound tenderness or guarding. No McBurney's point tenderness. Subjective tenderness palpation of the pelvic region bilaterally. Pelvic Exam: Carpet Layer Helper present Abdomen: Nontender External Genitalia: Normal Skin Speculum: Normal vaginal mucosa, normal cervical discharge. Mild amount of blood noted in the vaginal vault. Skin: No petechiae or rashes Back: No midline or flank tenderness Ext: No cyanosis, or edema Neur: Awake and alert Psych: Normal Mood and Affect Result Diagram: 12/12/18184812/12/181848 Results 24 hrs Laboratory Tests Test 12/12/18 18:49 12/12/18 18:52 White Blood Count 9.8 10^3/ul Red Blood Count 4.61 10^6/ul Hemoglobin 12.0 g/dl Hematocrit 38.0 % Mean Corpuscular Volume 82.4 fl Mean Corpuscular Hemoglobin 26.0 pg Mean Corpuscular Hemoglobin Concent 31.6 g/dl Red Cell Distribution Width 14.5 % Platelet Count 310 10^3/UL Mean Platelet Volume 10.9 fl Immature Granulocytes % 0.200 % Neutrophils % 43.5 % Lymphocytes % 47.5 % Monocytes % 6.3 % Eosinophils % 2.1 % Basophils % 0.4 % Nucleated Red Blood Cells % 0.0 /100WBC Immature Granulocytes # 0.020 10^3/ul Neutrophils # 4.2 10^3/ul Lymphocytes # 4.6 10^3/ul Monocytes # 0.6 10^3/ul Eosinophils # 0.2 10^3/ul Basophils # 0.0 10^3/ul Nucleated Red Blood Cells # 0.0 10^3/ul Urine Color STRAW Urine Clarity CLEAR Urine pH 7.0 Urine Specific [place] 1.006 Urine Ketones NEGATIVE mg/dL Urine Nitrite NEGATIVE mg/dL Urine Bilirubin NEGATIVE mg/dL Urine Urobilinogen NEGATIVE mg/dL Urine Leukocyte Esterase TRACE Gigi/ul Urine Microscopic RBC 14 /HPF Urine Microscopic WBC 4 /HPF Urine Squamous Epithelial Cells FEW /HPF Urine Bacteria FEW /HPF Urine Hemoglobin 3+ mg/dL Urine Glucose 3+ mg/dL Urine Total Protein NEGATIVE mg/dl Sodium Level 136 mmol/L Potassium Level 4.4 mmol/L Chloride Level 101 mmol/L Carbon Dioxide Level 27 mmol/L Anion Gap 8 Blood Urea Nitrogen 13 mg/dl Creatinine 0.45 mg/dl Est Glomerular Filtrat Rate mL/min > 60 mL/min Glucose Level 266 mg/dl Calcium Level 8.7 mg/dl Total Bilirubin 0.2 mg/dl Direct Bilirubin 0.00 mg/dl Indirect Bilirubin 0.2 mg/dl Aspartate Amino Transf (AST/SGOT) 21 IU/L Alanine Aminotransferase (ALT/SGPT) 15 IU/L Alkaline Phosphatase 156 IU/L Total Protein 7.3 g/dl Albumin 3.7 g/dl Globulin 3.60 g/dl Albumin/Globulin Ratio 1.02 POC Beta HCG, Qualitative NEGATIVE Current Medications Medications Dose Sig/Dinesh Start Time Status Last (Trade) Ordered Route PRN Stop Time Admin Dose Reason Admin Ibuprofen 600 mg ONCE ONCE 12/12/18 DC 12/12/18 (Motrin) PO 19:00 18:52 12/12/18 19:01 [place] [address] Radiology Main Line: [phone] DIAGNOSTIC IMAGING REPORT Patient: ARCELIA HENNING : 1975 Age: 43 Sex: F MR #: [id number] DOS: 12/12/18 1840 Ordering MD: EZEQUIEL ISSA PA-C Location: [facility]TE Room/Bed: PROCEDURE: US Pelvis. CLINICAL INDICATION: Pelvic pain LAST MENSTRUAL PERIOD: 11/27/2018 TECHNIQUE: Multiple sonographic images of the pelvis were obtained utilizing a transabdominal and endovaginal technique. COMPARISON: 02/21/[address] 12/16/2017 FINDINGS: The uterus is visualized and measures 8.0 x 3.8 x 4.2 cm. Intrauterine device in expected location. The endometrial echo complex is normal and measures 8 mm. Trace pelvic free fluid. The right ovary has a normal echotexture and measures 2.4 x 1.4 x 2.2 cm. The left ovary has a normal echotexture and measures 5.1 x 2.7 x 4.0 cm. Left ovarian physiologic simple cyst measuring 3.8 cm. No adnexal masses are noted. Normal bilateral ovarian blood flow. IMPRESSION: Normal appearance the uterus with intrauterine device in expected location. Normal appearance of the ovaries with normal blood flow. Left ovarian physiologic simple cyst does not require follow-up. Trace pelvic free fluid may be physiologic at this age. RPTAT:AAJJ Physician Nela Date Time Electronically viewed and signed by Physician Nela on 12/12/2018 19:54 MH/ CC: EZEQUIEL ISSA PA-C [id number] Procedures/MDM 43-year-old female presenting to the emergency department complaining of intermittent vaginal bleeding and pelvic pain for the past 2 weeks. Pelvic ultrasound revealed no significant acute abnormalities. Urine was negative. CBC showed no evidence of significant leukocytosis or anemia. Chemistry panel was essentially unremarkable. Patient had elevated glucose at 266 and was advised of these results and have her follow-up with her primary care physician. No evidence to suggest diabetic ketoacidosis on laboratory studies. Patient symptoms likely secondary to dysfunctional uterine bleeding. No evidence to suggest ectopic , tubo-ovarian abscess, ovarian torsion, septic , PID, or other emergencies. Patient is stable and appropriate for further outpatient management and follow-up with her PERSONNEL DIRECTOR physician. She was advised to return to the department immediately for any new or worsening or concerning symptoms. She was in agreement with the diagnosis, plan, need for follow-up, return precautions. Departure Diagnosis: Primary Impression: Vaginal bleeding Condition: Fair Additional Instructions: Muchas adelia por [facility] para galicia servicio. Esperamos que en galicia visita a la sukumar de emergencia galicia problema medico haya sido solucionado y que se sienta mucho mejor. Para estar seguros que galicia mejoria sigue en proceso, le pedimos el favor de hacer yelitza arsenio de seguimiento medico con galicia doctor primario en los proximos 2-4 barr. Lleve con usted estos documentos y las medicinas recetadas. Si princess sintomas empeoran, NO SE ESPERE, por favor regrese a sukumar de emergencia INMEDIATAMENTE. En jose que usted no tenga un mdico de atencin primaria: Llame al mdico o clnica comunitaria de referencia que aparece abajo corey las horas de consultorio para hacer yelitza arsenio para que le vean. CLINICAS: [facility] [phone] [facility] [phone] [address] [facility] [phone] [place] [id number] [phone] [facility] [phone] [facility]. [phone] EZEQUIEL MARTINES PA-C December 12, 2018 19:44
[2018-12-12] MEDS ORDERED: NAPR-985 PO (20:00)
[2018-12-12 20:12] VITALS: BP 137/64; PULSE 137; RESP 16
== END 2018-12-12 20:13 | disposition home or self-care (01) ==
LOC: FTE 18:01
DX: N93.9 Abnormal uterine and vaginal bleeding, unspecified (principal); R10.2 Pelvic and perineal pain
CPT/HCPCS: 36415; 76830; 76856; 80053; 81001; 81025; 85025; Z7502; Z7610

== ENCOUNTER 2018-12-20 14:54 | Emergency (ER) | payer OTHER ==
[~2018-12-20] VITALS: Ht 170.2 cm; Wt 90.9 kg
[~2018-12-20 14:54] MED LIST changes: +NAPR-985 PO
[2018-12-20 15:07] VITALS: BP 147/81; PULSE 97; RESP 18; Ht 170.2 cm; Wt 90.9 kg
[2018-12-20] MEDS ORDERED: KETOROLAC 30 MG INJ IM STA (16:08)
[2018-12-20] MEDS ORDERED: ONDANSETRON (ODT) 4 MG TAB ODT STA (16:08)
--- NOTE | 2018-12-20 16:23 | ERD ---
ER Documentation Chief Complaint Chief Complaint FEVER , HEADACHE , VOMITING X 3 DAYS HPI This is a 43-year-old female who states she has had 3 days of headache as well as chills and vomiting and cough and dizziness. She took Tylenol which does help temporarily. Her cough is dry and worse at night. She was recently here for dysfunctional uterine bleeding but states the bleeding has now resolved. No flank pain dysuria hematuria frequency. ROS All systems reviewed and are negative except as per history of present illness. Medications Home Meds Active Scripts Meclizine Hcl* (Meclizine Hcl*) 25 Mg Tablet, 25 MG PO Q8H PRN for DIZZINESS, # 20 TAB Prov:RYAN BROOKE PA-C 12/20/18 Ondansetron (Ondansetron Odt) 4 Mg Tab.rapdis, 4 MG PO Q6H PRN for NAUSEA AND/OR VOMITING, #20 TAB Prov:RYAN BROOKE PA-C 12/20/18 Aspirin/Acetaminophen/Caffeine (Excedrin Migraine Caplet) 1 Each Tablet, 1 EACH PO Q6, #30 TAB Prov:RYAN BROOKE PA-C 12/20/18 Naproxen* (Naprosyn*) 500 Mg Tablet, 500 MG PO BID PRN for PAIN AND/OR INFLAMMATION, #30 TAB Prov:EZEQUIEL ISSA PA-C 12/12/18 Benzonatate* (Tessalon Perle*) 100 Mg Capsule, 100 MG PO Q8H PRN for COUGH, #30 CAP Prov:ADDISON BERGER PA-C 10/21/18 Promethazine Hcl* (Promethazine Hcl* Syrup) 6.25 Mg/5 Ml Syrup, 6.25 MG PO Q6H PRN for COUGH, #100 ML Prov:ADDISON BERGER PA-C 10/21/18 Methylprednisolone* (Medrol* DOSE PACK) 4 Mg/Dose-Pack Tab.ds.pk, 4 MG PO . DIRECTED, #1 PACKET Prov:ADDISON BERGER PA-C 10/21/18 Cephalexin* (Keflex*) 500 Mg Capsule, 500 MG PO BID for 7 Days, CAP Prov:YVROSE MORALES 02/21/18 Famotidine* (Pepcid*) 20 Mg Tablet, 20 MG PO BID for 4 Days, #30 TAB Prov:ADDISON BERGERC 12/16/17 Acetaminophen* (Tylenol*) 325 Mg Tablet, 2 TAB PO Q6 PRN for PAIN AND OR ELEVATED TEMP, #20 TAB Prov:ADDISON BERGERC 12/16/17 Nitrofurantoin Monohyd Macrocr* (Macrobid*) 100 Mg Capsr, 100 MG PO BID for 14 Days, CAP Prov:ADDISON BERGERC 12/16/17 Phenazopyridine Hcl* (Pyridium*) 100 Mg Tab, 100 MG PO TID PRN for URINARY PAIN, #6 TAB Prov:MARGARETTE ANAYA COSTUMER 07/06/17 Nitrofurantoin Monohyd Macrocr* (Macrobid*) 100 Mg Capsr, 100 MG PO BID for 7 Days, CAP Prov:MARGARETTE ANAYA COSTUMER 07/06/17 Acetaminophen* (Tylophen*) 500 Mg Capsule, 1 CAP PO Q6H PRN for PAIN AND OR ELEVATED TEMP, #30 CAP Prov:ABRAHAM ORTEGA PA-C 04/16/17 Ondansetron Hcl* (Zofran*) 4 Mg Tablet, 4 MG PO Q6H for NAUSEA AND/OR VOMITING, #30 TAB Prov:ABRAHAM ORTEGA PA-C 04/16/17 Cephalexin* (Keflex*) 500 Mg Capsule, 500 MG PO QID for 7 Days, CAP Prov:ABRAHAM ORTEGA PA-C 04/16/17 Ondansetron (Ondansetron Odt) 8 Mg Tab.rapdis, 8 MG PO Q6H PRN for NAUSEA AND/OR VOMITING, #8 TAB Prov:TIA HERNANDES MD 12/27/16 Cephalexin* (Keflex*) 500 Mg Capsule, 500 MG PO QID for 5 Days, CAP Prov:TIA HERNANDES MD 12/27/16 Fluconazole* (Diflucan*) 150 Mg Tablet, 150 MG PO ONCE, #2 TAB Prov:TETE LU PA-C 08/18/16 Nitrofurantoin Monohyd Macrocr* (Macrobid*) 100 Mg Capsr, 100 MG PO BID for 7 Days, CAP Prov:TETE LU PA-C 08/18/16 Phenazopyridine Hcl* (Pyridium*) 200 Mg Tab, 200 MG PO TID PRN for URINARY PAIN, #6 TAB Prov:RYAN BROOKE PA-C 02/16/16 Cephalexin* (Keflex*) 500 Mg Capsule, 500 MG PO BID for 5 Days, CAP Prov:RYAN BROOKE PA-C 02/16/16 Orphenadrine Citrate (Norflex) 100 Mg Tablet.sa, 100 MG PO BID, #6 TAB.SA Prov:JEAN PAUL KYLE 12/14/15 Ibuprofen* (Motrin*) 600 Mg Tab, 600 MG PO Q8, #20 TAB Prov:JEAN PAUL KYLE 12/14/15 Cephalexin* (Keflex*) 500 Mg Capsule, 500 MG PO QID for 7 Days, CAP Prov:JEAN PAUL KYLE 12/14/15 Reported Medications Amlodipine Besylate* (Amlodipine Besylate*) Unknown Strength Tablet, MG PO DAILY, #30 TAB 12/14/15 Metformin* (Glucophage*) Unknown Strength Tab, MG PO WITH BREAKFAST DINNE, #60 TAB 12/14/15 Insulin Lispro (Humalog) 100 U/Ml Cartridge, 20 UNITS SC WITH BREAKFAST DINNE, EA 12/14/15 Insulin Glargine* (Lantus*) 100 Unit/Ml Soln, 15 UNIT SC BID, #1 VIAL 12/14/15 Allergies Allergies: Coded Allergies: No Known Allergy (Unverified , 12/16/17) PMhx/Soc History of Surgery: Yes (cholecystectomy 3 yrs ago) Anesthesia Reaction: No Hx Neurological Disorder: No Hx Respiratory Disorders: No Hx Cardiac Disorders: Yes (HTN) Hx Psychiatric Problems: No Hx Miscellaneous Medical Probl: No Hx Alcohol Use: No Hx Substance Use: No Hx Tobacco Use: No Smoking Status: Never smoker FmHx Family History: No diabetes Physical Exam Vitals Vital Signs Date Temp Pulse Resp B/P (MAP) Pulse Ox O2 O2 Flow FiO2 Time Delivery Rate 12/20/18 99.2 97 18 147/81 98 15:07 (103) Physical Exam INITIAL VITAL SIGNS: Reviewed by me GENERAL: Awake, alert and oriented x 4, well appearing, nontoxic, speaking in full sentences. No acute distress HEAD: Atraumatic NECK: Supple. No masses. Full range of motion. No meningismus. No midline tenderness. THROAT: No tonilar erythema or edema. No exudates. Uvula midline. No kissing tonsils. RESPIRATORY: Clear to auscultation bilaterally. Symmetric chest wall rise. No wheezing or rales. No accessory muscle use. CV: Regular rate and rhythm. No murmurs, rubs, or gallops. ABDOMEN: Soft, non-distended. Nontender. Negative [place]. Negative McBurneys point tenderness. No CVA tenderness bilaterally. No guarding. No rebound. NEUROLOGIC: Normal mental status and speech. Face is symmetric. Moves all extremities equally. Motor and sensory distally intact. Normal coordination. Ambulates with a strong steady gait. Results 24 hrs Laboratory Tests Test 12/20/18 16:30 Bedside Glucose 113 mg/dL Current Medications Medications Dose Sig/Dinesh Start Time Status Last (Trade) Ordered Route PRN Stop Time Admin Dose Reason Admin Ketorolac 30 mg ONCE STAT 12/20/18 DC 12/20/18 Tromethamine IM 16:08 12/20/18 16:15 (Toradol) 16:09 Ondansetron 4 mg ONCE STAT 12/20/18 DC 12/20/18 HCl (Zofran ODT 16:08 12/20/18 16:14 Odt) 16:09 Meclizine 25 mg ONCE ONCE 12/20/18 DC 12/20/18 HCl PO 16:30 12/20/18 16:15 (Antivert) 16:31 Procedures/MDM Patient is here with cough, headache, dizziness, vomiting. She is well- appearing in no distress. No fever. Exam is normal. Neurological exam is normal. GI examination is normal. Likely viral illness versus migraine headache. Accu-Chek was performed as well as urine . She was given Toradol Zofran and meclizine and discharged with Excedrin Zofran and meclizine. Patient counseled regarding my diagnostic impression and care plan. Prior to discharge all questions answered. Pt agrees with treatment plan and understands strict return precautions. Pt is instructed to follow up with primary care provider within 24-48 hours. Precautionary instructions provided including instructions to return to the ER if not improving or for any worsening or changing symptoms or concerns. Departure Diagnosis: Primary Impression: Headache Additional Impression: URI (upper respiratory infection) Condition: Stable RYAN BROOKEC Dec 20, 2018 16:23
[2018-12-20] MEDS ORDERED: MECLIZINE 12.5 MG TAB PO ONE (16:30)
[2018-12-20] MEDS ORDERED: ASPI1TAB31 PO (16:38)
[2018-12-20] MEDS ORDERED: ONDA4TAB14 PO (16:38)
[2018-12-20] MEDS ORDERED: MECL-77 PO (16:38)
== END 2018-12-20 16:51 | disposition home or self-care (01) ==
LOC: FTE 14:54
DX: J06.9 Acute upper respiratory infection, unspecified (principal); I10 Essential (primary) hypertension; Z79.4 Long term (current) use of insulin; Z79.82 Long term (current) use of aspirin
CPT/HCPCS: 82962; 96372; J1885; Z7502; Z7610

== ENCOUNTER 2019-02-22 15:18 | Emergency (ER) | payer OTHER ==
[~2019-02-22] VITALS: Ht 170.2 cm; Wt 91.9 kg
[~2019-02-22 15:18] MED LIST changes: +ASPI1TAB31 PO; +MECL-77 PO; +OMEP20CA16 PO; +ONDA4TAB14 PO
[2019-02-22 15:31] VITALS: BP 125/64; PULSE 79; RESP 20; Ht 170.2 cm; Wt 91.9 kg
--- NOTE | 2019-02-22 15:42 | ERD ---
ER Documentation Chief Complaint Chief Complaint painful urination x 1 week HPI 44-year-old female presents ED complaining of painful urination and increased urination x1 week. She states that this feels like a typical urinary tract infection for her. She denies any blood in her urine. She denies any fevers or chills. She reports slight tenderness to her lower abdomen. She states that this does not radiate anywhere. She denies any other symptoms at this time. However at the end of exam patient reports acid sensation after eating occasionally. She states that it starts at her epigastric region radiates up her throat. She has a previous history of this and has been given medicine for the past. She is asking for medication for this as well. ROS All systems reviewed and are negative except as per history of present illness. Medications Home Meds Active Scripts Cephalexin* (Keflex*) 500 Mg Capsule, 500 MG PO BID for 7 Days, CAP Prov:MORENITA RODRIGEZ PA-C 02/22/19 Omeprazole* (Omeprazole*) 20 Mg Capsule.dr, 20 MG PO DAILY, #30 Prov:MORENITA RODRIGEZ PA-C 02/22/19 Meclizine Hcl* (Meclizine Hcl*) 25 Mg Tablet, 25 MG PO Q8H PRN for DIZZINESS, #20 TAB Prov:RYAN BROOKE PA-C 12/20/18 Ondansetron (Ondansetron Odt) 4 Mg Tab.rapdis, 4 MG PO Q6H PRN for NAUSEA AND/OR VOMITING, #20 TAB Prov:RYAN BROOKE PA-C 12/20/18 Aspirin/Acetaminophen/Caffeine (Excedrin Migraine Caplet) 1 Each Tablet, 1 EACH PO Q6, #30 TAB Prov:RYAN BROOKE PA-C 12/20/18 Naproxen* (Naprosyn*) 500 Mg Tablet, 500 MG PO BID PRN for PAIN AND/OR INFLAMMATION, #30 TAB Prov:EZEQUIEL ISSA PA-C 12/12/18 Benzonatate* (Tessalon Perle*) 100 Mg Capsule, 100 MG PO Q8H PRN for COUGH, #30 CAP Prov:ADDISON BERGER PA-C 10/21/18 Promethazine Hcl* (Promethazine Hcl* Syrup) 6.25 Mg/5 Ml Syrup, 6.25 MG PO Q6H PRN for COUGH, #100 ML Prov:ADDISON BERGER PA-C 10/21/18 Methylprednisolone* (Medrol* DOSE PACK) 4 Mg/Dose-Pack Tab.ds.pk, 4 MG PO . DIRECTED, #1 PACKET Prov:ADDISON BERGER PA-C 10/21/18 Cephalexin* (Keflex*) 500 Mg Capsule, 500 MG PO BID for 7 Days, CAP Prov:YVROSE MORALES 02/21/18 Famotidine* (Pepcid*) 20 Mg Tablet, 20 MG PO BID for 4 Days, #30 TAB Prov:ADDISON BERGER PA-C 12/16/17 Acetaminophen* (Tylenol*) 325 Mg Tablet, 2 TAB PO Q6 PRN for PAIN AND OR ELEVATED TEMP, #20 TAB Prov:ADDISON BERGER PA-C 12/16/17 Nitrofurantoin Monohyd Macrocr* (Macrobid*) 100 Mg Capsr, 100 MG PO BID for 14 Days, CAP Prov:ADDISON BERGER PA-C 12/16/17 Phenazopyridine Hcl* (Pyridium*) 100 Mg Tab, 100 MG PO TID PRN for URINARY PAIN, #6 TAB Prov:MARGARETTE ANAYA NP 07/06/17 Nitrofurantoin Monohyd Macrocr* (Macrobid*) 100 Mg Capsr, 100 MG PO BID for 7 Days, CAP Prov:MARGARETTE ANAYA NP 07/06/17 Acetaminophen* (Tylophen*) 500 Mg Capsule, 1 CAP PO Q6H PRN for PAIN AND OR ELEVATED TEMP, #30 CAP Prov:ABRAHAM ORTEGAC 04/16/17 Ondansetron Hcl* (Zofran*) 4 Mg Tablet, 4 MG PO Q6H for NAUSEA AND/OR VOMITING, #30 TAB Prov:ABRAHAM ORTEGAC 04/16/17 Cephalexin* (Keflex*) 500 Mg Capsule, 500 MG PO QID for 7 Days, CAP Prov:ABRAHAM ORTEGAC 04/16/17 Ondansetron (Ondansetron Odt) 8 Mg Tab.rapdis, 8 MG PO Q6H PRN for NAUSEA AND/OR VOMITING, #8 TAB Prov:TIA HERNANDES MD 12/27/16 Cephalexin* (Keflex*) 500 Mg Capsule, 500 MG PO QID for 5 Days, CAP Prov:TIA HERNANDES MD 12/27/16 Fluconazole* (Diflucan*) 150 Mg Tablet, 150 MG PO ONCE, #2 TAB Prov:TETE LU PA-C 08/18/16 Nitrofurantoin Monohyd Macrocr* (Macrobid*) 100 Mg Capsr, 100 MG PO BID for 7 Days, CAP Prov:TETE LU PA-C 08/18/16 Phenazopyridine Hcl* (Pyridium*) 200 Mg Tab, 200 MG PO TID PRN for URINARY PAIN, #6 TAB Prov:RYAN BROOKE PA-C 02/16/16 Cephalexin* (Keflex*) 500 Mg Capsule, 500 MG PO BID for 5 Days, CAP Prov:RYAN BROOKE PA-C 02/16/16 Orphenadrine Citrate (Norflex) 100 Mg Tablet.sa, 100 MG PO BID, #6 TAB.SA Prov:JEAN PAUL KYLE 12/14/15 Ibuprofen* (Motrin*) 600 Mg Tab, 600 MG PO Q8, #20 TAB Prov:JEAN PAUL KYLE 12/14/15 Cephalexin* (Keflex*) 500 Mg Capsule, 500 MG PO QID for 7 Days, CAP Prov:JEAN PAUL KYLE 12/14/15 Reported Medications Amlodipine Besylate* (Amlodipine Besylate*) Unknown Strength Tablet, MG PO DAILY, #30 TAB 12/14/15 Metformin* (Glucophage*) Unknown Strength Tab, MG PO WITH BREAKFAST DINNE, #60 TAB 12/14/15 Insulin Lispro (Humalog) 100 U/Ml Cartridge, 20 UNITS SC WITH BREAKFAST DINNE, E A 12/14/15 Insulin Glargine* (Lantus*) 100 Unit/Ml Soln, 15 UNIT SC BID, #1 VIAL 12/14/15 Allergies Allergies: Coded Allergies: No Known Allergy (Unverified , 12/16/17) PMhx/Soc History of Surgery: Yes (cholecystectomy 3 yrs ago) Anesthesia Reaction: No Hx Neurological Disorder: No Hx Respiratory Disorders: No Hx Cardiac Disorders: Yes (HTN) Hx Psychiatric Problems: No Hx Miscellaneous Medical Probl: No Hx Alcohol Use: No Hx Substance Use: No Hx Tobacco Use: No FmHx Family History: No diabetes Physical Exam Vitals Vital Signs Date Temp Pulse Resp B/P (MAP) Pulse Ox O2 O2 Flow FiO2 Time Delivery Rate 02/22/19 97.4 79 20 125/64 98 15:31 (84) Physical Exam Const: No acute distress Head: Atraumatic Resp: Clear to auscultation bilaterally Cardio: Regular rate and rhythm, Abd: Soft, slight tenderness to the suprapubic region. Skin: No petechiae or rashes Back: No midline or flank tenderness Neur: Awake and alert Psych: Normal Mood and Affect Results 24 hrs Laboratory Tests Test 02/22/19 16:21 02/22/19 16:23 Bedside Urine pH (LAB) 5.0 Bedside Urine Protein (LAB) Negative Bedside Urine Glucose (UA) >=1.0% Bedside Urine Ketones (LAB) Negative Bedside Urine Blood Negative Bedside Urine Nitrite (LAB) Negative Bedside Urine Leukocyte Esterase (L Negative POC Beta HCG, Qualitative NEGATIVE Procedures/MDM ED COURSE: The patient was stable throughout ED course. I kept the patient informed of laboratory and diagnostic imaging results throughout the ED course. PROCEDURES: Urinalysis: Within normal limits MEDICAL DECISION MAKING: Patient is a 44-year-old female presenting with dysuria and acid reflux. I have low suspicion for acute pyelonephritis, bladder cancer, chlamydial genitourinary infections, herpes simplex, interstitial cystitis, PID, urethrtitis, vaginitis. On physical exam patient had slight tenderness to the suprapubic region that did not radiate anywhere. Patient was afebrile. Patient states that this feels like a typical urinary tract infection for her. Urinalysis was done and was within normal limits. But however according to the current guidelines patient was symptomatic and states that this feels typical urinary tract infection for her so I prescribed outpatient Keflex for her. Patient was told to return back to ED if symptoms persist or worsen. All questions were answered. Patient also reported history of acid reflux. She is asking for medication for this as well and I prescribed omeprazole. Vital signs were reviewed. Patient is afebrile. Patient was not hypoxic. Patient was hemodynamically stable. Patient was told to follow up with primary care for further care and management. PRESCRIPTION: Omeprazole, Keflex DISCHARGE: At this time, patient is stable for discharge and outpatient management. I have instructed the patient to follow-up with their primary care physician in 1-2 days. I have discussed with the patient the possibility of needing to see a specialist for further workup and imaging studies if symptoms persist. I have instructed the patient to promptly return to the ER for any new or worsening symptoms including increased pain, fever, nausea, vomiting, weakness or LOC. The patient expressed understanding of and agreement with this plan. All questions were answered. Home care instructions were provided. Disclaimer: Inadvertent spelling and grammatical errors are likely due to EHR/dictation software use and do not reflect on the overall quality of patient care. Also, please note that the electronic time recorded on this note does not necessarily reflect the actual time of the patient encounter. Departure Diagnosis: Primary Impression: UTI (urinary tract infection) Urinary tract infection type: acute cystitis Hematuria presence: without hematuria Qualified Codes: N30.00 - Acute cystitis without hematuria Additional Impression: GERD (gastroesophageal reflux disease) Esophagitis presence: without esophagitis Qualified Codes: K21.9 - Gastro- esophageal reflux disease without esophagitis Condition: Fair Patient Instructions: Understanding Urinary Tract Infections (UTIs) Referrals: [facility] YOU HAVE RECEIVED A MEDICAL SCREENING EXAM AND THE RESULTS INDICATE THAT YOU DO NOT HAVE A CONDITION THAT REQUIRES URGENT TREATMENT IN THE EMERGENCY DEPARTMENT. FURTHER EVALUATION AND TREATMENT OF YOUR CONDITION CAN WAIT UNTIL YOU ARE SEEN IN YOUR DOCTORS OFFICE WITHIN THE NEXT 1-2 DAYS. IT IS YOUR RESPONSIBILITY TO MAKE AN APPOINTMENT FOR FOLOW-UP CARE. IF YOU HAVE A PRIMARY DOCTOR --you should call your primary doctor and schedule an appointment IF YOU DO NOT HAVE A PRIMARY DOCTOR YOU CAN CALL OUR PHYSICIAN REFERRAL HOTLINE AT IF YOU CAN NOT AFFORD TO SEE A PHYSICIAN YOU CAN CHOSE FROM THE FOLLOWING [facility] [address] [facility] [address] [facility] [address] [facility] [address] [facility] [address] [facility]. [facility] [address] [facility]. [facility] YOU HAVE RECEIVED A MEDICAL SCREENING EXAM AND THE RESULTS INDICATE THAT YOU DO NOT HAVE A CONDITION THAT REQUIRES URGENT TREATMENT IN THE EMERGENCY DEPARTMENT. FURTHER EVALUATION AND TREATMENT OF YOUR CONDITION CAN WAIT UNTIL YOU ARE SEEN IN YOUR DOCTORS OFFICE WITHIN THE NEXT 1-2 DAYS. IT IS YOUR RESPONSIBILITY TO MAKE AN APPOINTMENT FOR FOLOW-UP CARE. IF YOU HAVE A PRIMARY DOCTOR --you should call your primary doctor and schedule and appointment IF YOU DO NOT HAVE A PRIMARY DOCTOR YOU CAN CALL OUR PHYSICIAN REFERRAL HOTLINE AT . IF YOU CAN NOT AFFORD TO SEE A PHYSICIAN YOU CAN CHOSE FROM THE FOLLOWING [facility] INSTITUTIONS: [facility] [address] [place] [address] [facility] [address] [place] [address] [facility] [address] [place] [address] Additional Instructions: Llame al doctor MAANA y ami yelitza MICHAEL PARA DENTRO DE 1-2 PEREZ.Dgale a la secretaria que nosotros le instruimos hacer esta michael.Avise o llame si galicia condicin se empeora antes de la michael. Regresa aqui si peor o no mejor. MORENITA RODRIGEZ PA-C Feb 22, 2019 15:42
== END 2019-02-22 16:30 | disposition home or self-care (01) ==
LOC: E/R 15:18
DX: N30.00 Acute cystitis without hematuria (principal); I10 Essential (primary) hypertension; K21.9 Gastro-esophageal reflux disease without esophagitis; Z79.4 Long term (current) use of insulin; Z79.82 Long term (current) use of aspirin
CPT/HCPCS: 81003; 81025; Z7502; 99283